=== PATIENT | male | born 1930 | race Caucasian/White ===

== ENCOUNTER 2018-07-18 09:52 | Emergency (ER) | payer MEDICARE, MEDICAID ==
--- NOTE | 2018-07-18 10:22 | EDM.PDOC ---
ED HPI GENERAL MEDICAL PROBLEM - General Chief Complaint: Lower Extremity Injury/Pain Stated Complaint: FALL-HIP PAIN Time Seen by Provider: 07/18/18 10:10 Source of Information: Reports: Patient History Limitations: Reports: No Limitations - History of Present Illness INITIAL COMMENTS - FREE TEXT/NARRATIVE: HISTORY AND PHYSICAL: History of present illness: Patient is an 87-year-old male who presents to the emergency to the emergency room with complaints of left hip pain. Patient is a resident of a local senior care, he was outside smoking when his walker got stuck in the snow when he fell on his left side. He states that he was quickly assisted to his feet and was able to weight-bear and ambulate but continues to have pain to the left hip, increased with weightbearing. He states he has broken this hip previous. He denies any numbness or tingling to his distal extremities. He denies hitting his head or any loss of consciousness. Review of systems: As per history of present illness and below otherwise all systems reviewed and negative. Past medical history: As per history of present illness and as reviewed below otherwise noncontributory. Surgical history: As per history of present illness and as reviewed below otherwise noncontributory. Social history: See social history for further information Family history: As per history of present illness and as reviewed below otherwise noncontributory. Physical exam: General: Well-developed and well-nourished 87-year-old male. Alert and oriented. Nontoxic appearing and in no acute distress. HEENT: Nontender with palpation, no cervical spine tenderness with palpation, normocephalic, pupils equal and reactive bilaterally, negative for conjunctival pallor or scleral icterus, mucous membranes moist, TMs normal bilaterally, throat clear, neck supple, nontender, trachea midline. No drooling or trismus noted. No meningeal signs. No hot potato voice noted. Lungs: Clear to auscultation, breath sounds equal bilaterally, chest nontender. Heart: S1S2, regular rate and rhythm without overt murmur Abdomen: Soft, nondistended, nontender. Negative for masses or hepatosplenomegaly. Negative for costovertebral tenderness. Pelvis: Stable nontender. Genitourinary: Deferred. Rectal: Deferred. Skin: Intact, warm, dry. No lesions or rashes noted. Extremities: Pain with palpation to the lateral left hip, position of comfort is the leg up in frogged outward. Positive CMS to the lower extremity. Strong pedal pulse. He is negative for cords or calf pain. Neurovascular unremarkable. Neuro: Awake, alert, oriented. Cranial nerves II through XII unremarkable. Cerebellum unremarkable. Motor and sensory unremarkable throughout. Exam nonfocal. Notes: Patient refuses any lab work or imagining of his head or neck. He denies hitting his head. Denies any head or neck pain at this time. He is alert, oriented and able to make decisions. He states "I just want my hip x-ray at". Vital signs are stable. Refuses any pain medication at this time. X-ray shows a possible nondisplaced left pubic rami fracture. Severe osteopenia noted. Advance atheromatous calcifications. Dr Hector was consult did on this case. She states this type of fracture is not operable in supportive care measures for home. She states he may return back to the senior care. This information was shared with the patient. I discussed with him the need for close follow-up with the orthopedic provider. Supportive care measures were reviewed and discussed. Voices understanding and is agreeable to plan of care. Denies any further questions or concerns at this time. Diagnostics: Pelvis and left hip Therapeutics: Declines Prescription: Tramadol (#15) Impression: Left pubic rami fracture, nondisplaced Plan: 1. Rest and ice the area as able. 2. Tylenol and/or ibuprofen as needed for pain management. Tramadol for moderate to severe pain. This medication may cause drowsiness a do not take it while needing to be up and active. 3. Call the orthopedic provider today to set up a follow-up appointment. I would like you reevaluated within the next week. Return to the ED as needed and as discussed. Definitive disposition and diagnosis as appropriate pending reevaluation and review of above. Left Hip Pain Score (Numeric/FACES): 10 - Related Data Allergies Allergy/AdvReac Type Severity Reaction Status Date / Time No Known Allergies Allergy Verified 07/18/18 10:11 Home Meds: Home Meds Enalapril [Vasotec] 5 mg PO DAILY #30 tablet 05/03/16 [Rx] Ferrous Sulfate 325 mg PO BID #60 tablet 05/03/16 [Rx] Furosemide [Lasix] 40 mg PO DAILY #60 tablet 05/03/16 [Rx] Metoprolol Tartrate [Lopressor] 12.5 mg PO Q12HR #60 tablet 05/03/16 [Rx] Potassium Chloride [Klor-Con M20] 20 meq PO DAILY #30 tab.er 05/03/16 [Rx] Acetaminophen [Tylenol] 650 mg PO Q6H PRN 04/23/18 [History] Multivitamin [Multivitamins] 1 cap PO DAILY 04/23/18 [History] Polyethylene Glycol 3350 [MiraLAX] 17 gm PO DAILY PRN 04/23/18 [History] atorvaSTATin [Lipitor] 40 mg PO DAILY 04/23/18 [History] Acetaminophen [Tylenol] 650 mg PO BID #60 tablet 04/28/18 [Rx] Amoxicillin/Potassium Clav [Augmentin 875-125 Tablet] 1 each PO BID #12 tablet 04/28/18 [Rx] Carboxymethyl/Gly/Poly80/Pf [Refresh Optive Mehrdad-3 Drops] 1 drop EYEBOTH Q2H PRN #1 bottle 04/28/18 [Rx] Hydrocodone/Acetaminophen [Hydrocodon-Acetaminophen 5-325] 5 - 325 mg PO Q6H PRN #10 tablet 04/28/18 [Rx] Hydrocortisone [Hydrocortisone 1% Crm] 30 gm TOP QID PRN #10 04/28/18 [Rx] L.acidoph,Paracasei, B.lactis [Probiotic] 1 each PO DAILY #60 capsule 04/28/18 [ Rx] Lidocaine HCl/Menthol [Icy Hot 4%-1% Cream] 7.5 gm TOP BID PRN #10 04/28/18 [Rx] Vancomycin [First-Vancomycin 25 Compounding Kit] 125 mg PO QID 12 Days bottle 04/28/18 [Rx] diphenhydrAMINE [Benadryl] 25 mg PO Q6H PRN #10 04/28/18 [Rx] Past Medical History HEENT History: Reports: Impaired Vision Other HEENT History: unspecified visual loss Cardiovascular History: Reports: Cardiomyopathy, Heart Failure, Hypertension, Other (See Below) Other Cardiovascular History: hyperlipidemia, localized edema Respiratory History: Reports: None Other Respiratory History: dependence on supplemental 02, other non-specified abnormal finding of the lung, nicotine dependence Gastrointestinal History: Reports: None. Denies: Cirrhosis Genitourinary History: Reports: Retention, Urinary, UTI, Recurrent, Other (See Below) Other Genitourinary History: obstructive and reflux uropathy, benign prostatic hyperplasia, pt with indwelling engle catheter Musculoskeletal History: Reports: Back Pain, Chronic, Osteoporosis, Other (See Below) Other Musculoskeletal History: dorsalgia, other abnormalities of the gait and mobility, pain to right toes, age-related physical debility, difficulty walking , muscle weakness Neurological History: Reports: None Psychiatric History: Reports: None Endocrine/Metabolic History: Reports: None. Denies: Diabetes, Type I, Diabetes , Type II Hematologic History: Reports: Anemia, Iron Deficiency Oncologic (Cancer) History: Reports: Other (See Below) Other Oncologic History: Suspicious nodule on right lower lung. Dermatologic History: Reports: None Other Dermatologic History: corns and callositis - Infectious Disease History Infectious Disease History: Reports: Measles, Mumps - Past Surgical History HEENT Surgical History: Reports: None Other Respiratory Surgeries/Procedures: Offered to have nicotine patch prescribed for him but refused. States he can handle not smoking in the hospital. GI Surgical History: Reports: Hernia, Inguinal Male Surgical History: Reports: None, Other (See Below) Musculoskeletal Surgical History: Reports: Hip Replacement Oncologic Surgical History: Reports: None Dermatological Surgical History: Reports: None Social & Family History - Family History Family Medical History: Noncontributory HEENT: Reports: None - Caffeine Use Caffeine Use: Reports: Coffee, Tea - Living Situation & Occupation Living situation: Reports: Single Occupation: Retired Review of Systems - Review of Systems Review Of Systems: ROS reveals no pertinent complaints other than HPI. ED EXAM, GENERAL - Physical Exam Exam: See Below (See dictation) Course - Vital Signs Last Recorded V/S: Last Vital Signs Temp 98.3 F 07/18/18 10:11 Pulse 88 07/18/18 12:20 Resp 13 07/18/18 12:20 BP 101/68 07/18/18 12:20 Pulse Ox 95 07/18/18 12:20 Departure - Departure Time of Disposition: 12:21 Disposition: Home, Self-Care 01 Clinical Impression: Pubic ramus fracture Qualifiers: Encounter type: initial encounter Fracture type: closed Laterality: left Qualified Code(s): S32.592A - Other specified fracture of left pubis, initial encounter for closed fracture - Discharge Information Referrals: Jesús Mckeon MD [Primary Care Provider] - Forms: ED Department Discharge Additional Instructions: The following information is given to patients seen in the emergency department who are being discharged to home. This information is to outline your options for follow-up care. We provide all patients seen in our emergency department with a follow-up referral. The need for follow-up, as well as the timing and circumstances, are variable depending upon the specifics of your emergency department visit. If you don't have a primary care physician on staff, we will provide you with a referral. We always advise you to contact your personal physician following an emergency department visit to inform them of the circumstance of the visit and for follow-up with them and/or the need for any referrals to a consulting specialist. The emergency department will also refer you to a specialist when appropriate. This referral assures that you have the opportunity for follow-up care with a specialist. All of these measure are taken in an effort to provide you with optimal care, which includes your follow-up. Under all circumstances we always encourage you to contact your private physician who remains a resource for coordinating your care. When calling for follow-up care, please make the office aware that this follow-up is from your recent emergency room visit. If for any reason you are refused follow-up, please contact the [facility] Emergency Department at and asked to speak to the emergency department charge nurse. [facility] [address] [place] [address] [address] [facility] Professional [facility] [address] [place] [address], [address] [place] [address] 1. Rest and ice the area as able. Limited weight bearing to promote healing. 2. Tylenol and/or ibuprofen as needed for pain management. Tramadol for moderate to severe pain. This medication may cause drowsiness a do not take it while needing to be up and active. 3. Call the orthopedic provider today to set up a follow-up appointment. I would like you reevaluated within the next week. Return to the ED as needed and as discussed.
--- NOTE | 2018-07-18 12:06 | CR ---
EXAMINATION: Pelvis HISTORY: Fall COMPARISON: 10/17/2015 TECHNIQUE: AP pelvis and 2 views of the left hip FINDINGS: The visualized osseous structures are severely osteopenic. There is an intramedullary alice noted within the proximal left femur an interlocking femoral neck screw. There is an area of sclerosis and possible cortical interruption involving the inferior left pubic rami. Prominent vascular calcifications are noted. IMPRESSION: 1. Possible nondisplaced left pubic rami fractures. 2. Severe osteopenia. 3. Advanced atheromatous calcifications noted.
[2018-07-18 12:21] VITALS: BP 101/68
== END 2018-07-18 12:33 | disposition home or self-care (01) ==
LOC: MW.ED 09:52
DX: S32.592A Other specified fracture of left pubis, initial encounter for closed fracture (principal); I11.0 Hypertensive heart disease with heart failure; I50.9 Heart failure, unspecified; D64.9 Anemia, unspecified; Z87.440 Personal history of urinary (tract) infections; W00.0XXA Fall on same level due to ice and snow, initial encounter
CPT/HCPCS: 73502-26-LT; 73502-LT; 99283